=== PATIENT | male | born 1950 | race Caucasian/White ===

== ENCOUNTER 2019-07-22 08:56 | Emergency (ER) | payer MEDICARE, OTHER ==
[2019-07-22] MEDS ORDERED: Aspirin 81 MG Tab.Chew PO ONE (09:17)
[2019-07-22] MEDS ORDERED: Nitroglycerin 0.4 MG Tab.SL SL ONE ×3 (09:18→09:36)
--- NOTE | 2019-07-22 09:27 | EDM.PDOC ---
ED HPI GENERAL MEDICAL PROBLEM - General Chief Complaint: Chest Pain Stated Complaint: CHEST DENISSE NS Time Seen by Provider: 07/22/19 09:10 Source of Information: Reports: Patient - History of Present Illness INITIAL COMMENTS - FREE TEXT/NARRATIVE: Abraham Seaman" is a 68 y/o male who comes to the ER with chest pain. He reports being woke up about 0200 with the chest pain and it seemed to radiate into his right arm. He denies that the pain made him SOB, but he did get pain in his right arm. He thinks the pain [id number] with movement, but he was nauseated. Denies previous bouts of chest pain. He is a diabetic with oral control. Patient's father had an HI and at age 52. - Related Data Allergies Allergy/AdvReac Type Severity Reaction Status Date / Time No Known Allergies Allergy Verified 07/22/19 09:17 Home Meds: Home Meds metFORMIN [Glucophage XR] 1 tab PO BID 08/17/15 [History] Past Medical History Other Gastrointestinal History: history of rectal bleeding. inguinal hernia Other Musculoskeletal History: bilateral leg pain. 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) Review of Systems - Review of Systems Review Of Systems: See Below Constitutional: Reports: No Symptoms Eyes: Reports: No Symptoms Ears: Reports: No Symptoms Nose: Reports: No Symptoms Mouth/Throat: Reports: No Symptoms Respiratory: Reports: No Symptoms Cardiovascular: Reports: Chest Pain GI/Abdominal: Reports: Nausea Genitourinary: Reports: No Symptoms Musculoskeletal: Reports: Arm Pain (right) Skin: Reports: No Symptoms Neurological: Reports: No Symptoms Psychiatric: Reports: No Symptoms ED EXAM, GENERAL - Physical Exam Exam: See Below Exam Limited By: No Limitations General Appearance: Alert, WD/WN, No Apparent Distress Ears: Normal External Exam, Hearing Grossly Normal Nose: Normal Inspection Throat/Mouth: Normal Inspection, Normal Lips, Normal Teeth, Normal Gums, Normal Voice, No Airway Compromise Head: Atraumatic, Normocephalic Neck: Normal Inspection, Supple, Non-Tender Respiratory/Chest: No Respiratory Distress, Lungs Clear, Normal Breath Sounds, No Accessory Muscle Use, Chest Non-Tender Cardiovascular: Normal Peripheral Pulses, Regular Rate, Rhythm, No Edema, No Gallop, No JVD, No Murmur, No Rub GI/Abdominal: Normal Bowel Sounds, Soft, Non-Tender, No Organomegaly, No Mass (Male) Exam: Deferred Rectal (Males) Exam: Deferred Extremities: Normal Inspection Neurological: Alert, Oriented, CN II-XII Intact, Normal Cognition, Normal Gait, No Motor/Sensory Deficits Psychiatric: Normal Affect, Normal Mood Skin Exam: Warm, Dry, Intact, Normal Color, No Rash Lymphatic: No Adenopathy EKG INTERPRETATION EKG Date: 07/22/19 Time: 08:55 Rhythm: NSR Rate (Beats/Min): 68 EKG Interpretation Comments: SR with mild depression noted in Lead I, mild ST elevation noted in V2, V3 Course - Vital Signs Text/Narrative:: 0910 The patient was seen by the PROVIDER NETWORK ANALYST. Labs, CXR, & EKG were ordered. He was given Aspirin 324mg po x 1 and Nitro 0.4ml SL x 1. 0935 Patient was continuing to have chest pain 3/10 and Nitro was given twice and a third dose was now ordered. EKG was repeated. 0944 EKG essentially unchanged, some borderline elevation noted in V2 and V3. Morphine 2 mg IVP ordered for persistent CP. 1000 Notified by lab of elevated troponin at 0.074. 1005 [place] [facility] contacted and transfer requested. Will start Heparin gtt and Nitro gtt. Dr Melvin accepted the patient to [facility]. Patient pain better with Morphine. VSS. Patient remained stable and left with [facility] crew. Last Recorded V/S: Last Vital Signs Temp 36.3 C 07/22/19 09:00 Pulse 66 07/22/19 10:15 Resp 16 07/22/19 10:15 BP 133/87 07/22/19 10:15 Pulse Ox 97 07/22/19 10:15 - Orders/Labs/Meds Orders: Active Orders 24 hr Category Date Time Status EKG Documentation Completion [RC] STAT Care 10/21/19 09:15 Ordered EKG Documentation Completion [RC] STAT Care 07/22/19 09:45 Ordered Oxygen Therapy, ED [RC] ASDIRECTED Care 07/22/19 10:07 Ordered UA W/O MICROSCOPIC [URIN] Stat Lab 07/22/19 10:03 Ordered Heparin Sodium/0.45% NaCl [Heparin 25,000 Units in 1/2 Med 07/22/19 10:15 Ordered NS 500 ML] 25,000 units in 500 ml IV TITRATE Nitroglycerin 25 MG in D5W @ 10 MCG/MIN (250ml) Premix Med 07/22/19 10:15 Ordered Nitroglycerin/D5W [Nitroglycerin 25 MG/D5W 250 ML] 25 mg in 250 ml IV TITRATE Medication Orders Heparin Sodium/Sodium Chloride (Heparin 25,000 Units In 1/2 Ns 500 Ml) 25,000 units in 500 mls @ 1.2 mls/hr IV TITRATE LEONARD; Protocol Nitroglycerin/Dextrose (Nitroglycerin 25 Mg/D5w 250 Ml) 25 mg in 250 mls @ 6 mls/hr IV TITRATE LEONARD; Protocol Labs: Laboratory Tests 07/22/19 07/22/19 07/22/19 Range/Units 09:08 09:08 09:08 WBC 7.6 (4.0-10.0) x10^3/uL RBC 5.16 (4.5-6.0) x10^6/uL Hgb 15.5 (14.0-18.0) g/dL Hct 44.2 (40.0-52.0) % MCV 85.7 (78.0-93.0) fL MCH 30.0 (26.0-32.0) pg MCHC 35.1 (32.0-36.0) g/dL RDW Coeff of Jonathan 12.3 (10.0-15.0) % Plt Count 229 (130-400) x10^3/uL Neut % (Auto) 58.4 (50.0-80.0) % Lymph % (Auto) 28.1 (25.0-50.0) % [place]entry % (Auto) 10.8 (2.0-11.0) % Eos % (Auto) 2.4 (0.0-4.0) % Baso % (Auto) 0.3 (0.2-1.2) % PT 9.8 L (10.0-12.8) SEC INR 0.9 L (2.0-3.5) APTT 24.2 (24.0-36.0) SEC Sodium 137 (69-191) mmol/L Potassium 4.0 (1.5-9.9) mmol/L Chloride 100 (54-184) mmol/L Carbon Dioxide 25 (21-32) mmol/L Anion Gap 16.0 (10-20) mmol/L BUN 14 (7-18) mg/dL Creatinine 0.9 (0.70-1.30) mg/dL Est Cr Clr Drug Dosing 80.74 mL/min Estimated GFR (MDRD) > 60 Glucose 212 H (74-106) mg/dL Calcium 9.1 (8.5-10.1) mg/dL Corrected Calcium 9.26 (8.5-10.1) mg/dL Total Bilirubin 1.3 H (0.2-1.0) mg/dL AST 19 (15-37) U/L ALT 29 (16-63) U/L Alkaline Phosphatase 44 L (46-116) U/L Creatine Kinase 198 (39-308) U/L Troponin I 0.074 H* (<=0.056) ng/mL Total Protein 7.6 (6.4-8.2) g/dL Albumin 3.8 (3.4-5.0) g/dL Globulin 3.8 Albumin/Globulin Ratio 1.00 Meds: Medications Generic Name Dose Route Start Last Admin Trade Name Freq PRN Reason Stop Dose Admin Heparin Sodium/Sodium Chloride 25,000 units in 500 mls @ 1.2 mls/hr 07/22/19 10:15 Heparin 25,000 Units In 1/2 Ns 500 Ml IV TITRATE LEONARD Protocol 60 UNITS/HR Nitroglycerin/Dextrose 25 mg in 250 mls @ 6 mls/hr 07/22/19 10:15 Nitroglycerin 25 Mg/D5w 250 Ml IV TITRATE LEONARD Protocol 10 MCG/MIN Discontinued Medications Generic Name Dose Route Start Last Admin Trade Name Freq PRN Reason Stop Dose Admin Aspirin 324 mg 07/22/19 09:17 07/22/19 09:15 Aspirin PO 07/22/19 09:18 324 mg ONETIME ONE Administration Heparin Sodium (Porcine) 4,000 units 07/22/19 10:01 Heparin Sodium IVPUSH 07/22/19 10:02 .BOLUS ONE Morphine Sulfate 2 mg 07/22/19 09:45 07/22/19 09:52 Morphine IVPUSH 07/22/19 09:46 2 mg ONETIME ONE Administration Nitroglycerin 0.4 mg 07/22/19 09:18 07/22/19 09:17 Nitrostat SL 07/22/19 09:19 0.4 mg ONETIME ONE Administration Nitroglycerin 0.4 mg 07/22/19 09:27 07/22/19 09:27 Nitrostat SL 07/22/19 09:28 0.4 mg ONETIME ONE Administration Nitroglycerin 0.4 mg 07/22/19 09:36 07/22/19 09:36 Nitrostat SL 07/22/19 09:37 0.4 mg ONETIME ONE Administration - Radiology Interpretation Free Text/Narrative:: CXR=neg Departure - Departure Time of Disposition: 10:16 Disposition: DC/Tfer to [facility] 02 Condition: Good Clinical Impression: Acute coronary syndrome, Type 2 diabetes mellitus - Discharge Information *PRESCRIPTION DRUG MONITORING PROGRAM REVIEWED*: Not Applicable *COPY OF PRESCRIPTION DRUG MONITORING REPORT IN PATIENT DEUCE: Not Applicable Forms: ED Department Discharge, Interfacility Transfer EMTALA Additional Instructions: -Transfer to [facility] to Dr Melvin via [facility] ground crew for further care. - My Orders Last 24 Hours: My Active Orders 07/22/19 09:15 EKG Documentation Completion [RC] STAT 07/22/19 09:45 EKG Documentation Completion [RC] STAT 07/22/19 10:03 UA W/O MICROSCOPIC [URIN] Stat 07/22/19 10:07 Oxygen Therapy, ED [RC] ASDIRECTED 07/22/19 10:15 Heparin Sodium/0.45% NaCl [Heparin 25,000 Units in 1/2 NS 500 ML] 25,000 units in 500 ml IV TITRATE Nitroglycerin 25 MG in D5W @ 10 MCG/MIN (250ml) Premix Nitroglycerin/D5W [ Nitroglycerin 25 MG/D5W 250 ML] 25 mg in 250 ml IV TITRATE - Assessment/Plan Last 24 Hours: My Active Orders 07/22/19 09:15 EKG Documentation Completion [RC] STAT 07/22/19 09:45 EKG Documentation Completion [RC] STAT 07/22/19 10:03 UA W/O MICROSCOPIC [URIN] Stat 07/22/19 10:07 Oxygen Therapy, ED [RC] ASDIRECTED 07/22/19 10:15 Heparin Sodium/0.45% NaCl [Heparin 25,000 Units in 1/2 NS 500 ML] 25,000 units in 500 ml IV TITRATE Nitroglycerin 25 MG in D5W @ 10 MCG/MIN (250ml) Premix Nitroglycerin/D5W [ Nitroglycerin 25 MG/D5W 250 ML] 25 mg in 250 ml IV TITRATE
--- NOTE | 2019-07-22 09:39 | CR ---
[id number] RAD/RAD Chest PA or AP 1V EXAM: RAD Chest PA or AP 1V INDICATION: CHEST PAIN. COMPARISON: None. DISCUSSION: Cardiomediastinal silhouette is normal in size and contour. No infiltrate, effusion, pneumothorax, or edema. IMPRESSION: No acute cardiopulmonary abnormality. Mo Clark DO 07/22/19 0938 Thank you for allowing us to participate in the care of your patient.
[2019-07-22] MEDS ORDERED: Morphine 2 MG/ML Syringe IVPUSH ONE (09:45)
[2019-07-22 09:55] LABS: CHLORIDE,CL 100 mmol/L (54-184); SODIUM,NA 137 mmol/L (69-191)
[2019-07-22] MEDS ORDERED: Heparin Sodium 5,000 Units/ML Vial IVPUSH ONE (10:01)
[2019-07-22] MEDS ORDERED: Nitroglycerin/D5W 25 MG/250 ML BOTTLE IV SCH (10:15)
[2019-07-22] MEDS ORDERED: Heparin Sodium/0.45% NaCl 25,000 UNITS/500 ML BAG IV SCH (10:15)
[2019-07-22] MEDS ORDERED: Sodium Chloride 0.9% 1,000 ML IV SCH (10:30)
[2019-07-22 10:49] VITALS: BP 90/37; PULSE 58
== END 2019-07-22 11:02 | disposition short-term general hospital (02) ==
LOC: VM.ED 08:56
DX: I24.9 Acute ischemic heart disease, unspecified (principal); E11.9 Type 2 diabetes mellitus without complications; Z79.84 Long term (current) use of oral hypoglycemic drugs
CPT/HCPCS: 71045; 80053; 82550; 84484; 85025; 85610; 85730; 93005; 93010; 96365; 96368; 96375; 99284-GF; 99285-25; A9270-GY; J1644; J2270; J3490; J7030

== ENCOUNTER 2019-11-18 13:30 | Emergency (ER) | payer MEDICARE, OTHER ==
[2019-11-18] MEDS: HYDROmorphone 1 MG/ML Syringe IVPUSH ONE (13:46)
--- NOTE | 2019-11-18 14:36 | CR ---
[id number] RAD/RAD Lumbar Spine 2-3V EXAM: AP AND LATERAL LUMBAR SPINE. INDICATION: Back pain COMPARISON: Correlation is made with the exam of August 07, 2017 FINDINGS: Multilevel moderate degenerative changes are seen There is no fracture or subluxation There is bony foraminal narrowing and spinal stenosis at multiple levels IMPRESSION: MULTILEVEL MODERATE DEGENERATIVE CHANGES Michael Dubois MD 11/18/19 3557 Thank you for allowing us to participate in the care of your patient.
[2019-11-18 15:36] VITALS: BP 145/80; PULSE 70
--- NOTE | 2019-11-18 15:51 | EDM.PDOC ---
ED HPI GENERAL MEDICAL PROBLEM - General Chief Complaint: Back Pain or Injury Time Seen by Provider: 11/18/19 13:30 Source of Information: Reports: Patient History Limitations: Reports: No Limitations - History of Present Illness INITIAL COMMENTS - FREE TEXT/NARRATIVE: Pt. presents to ER with exacerbation of low back pain. Pt. states that he sneezed a few days ago and has been experiencing discomfort. Denies any numbness /tingling in legs. No incontinence or saddle anesthesia. Pt. was recently started on cyclobenzaprine 10mg three times daily for spasm. He states that he has had an MRI and "is supposed to have back surgery". He states that he has not had many flareups of discomfort until he sneezed. Onset: Today Onset Date: 11/18/19 Location: Reports: Back Quality: Reports: Ache, Throbbing Lower Back Pain Score (Numeric/FACES): 9 - Related Data Allergies Allergy/AdvReac Type Severity Reaction Status Date / Time No Known Allergies Allergy Verified 11/18/19 15:29 Home Meds: Home Meds metFORMIN [Glucophage XR] 500 mg PO QAM 08/17/15 [History] Apixaban [Eliquis] 5 mg PO BID 08/12/19 [History] Aspirin [Halfprin] 81 mg PO DAILY 08/12/19 [History] Clopidogrel [Plavix] 75 mg PO DAILY 08/12/19 [History] Lisinopril [Zestril] 2.5 mg PO DAILY 08/12/19 [History] Metoprolol Succinate [Toprol Xl] 25 mg PO DAILY 08/12/19 [History] Nitroglycerin [Nitrostat] 0.4 mg SL ASDIRECTED PRN 08/12/19 [History] atorvaSTATin [Lipitor] 40 mg PO BEDTIME 08/12/19 [History] metFORMIN [Glucophage] 1,000 mg PO BEDTIME 08/12/19 [History] Past Medical History Cardiovascular History: Reports: PR, Stents Other Gastrointestinal History: history of rectal bleeding. inguinal hernia Other Musculoskeletal History: bilateral leg pain. prepatellar bursitis of right knee Other Psychiatric History: alcohol abuse Endocrine/Metabolic History: Reports: Diabetes, Type II Other Immunologic History: MRSA - Past Surgical History GI Surgical History: Reports: Hernia, Inguinal Social & Family History - Family History Cardiac: Reports: CAD Neurological: Reports: CVA Endocrine/Metabolic: Reports: Diabetes, type II - Tobacco Use Smoking Status *Q: Never Smoker - Caffeine Use Caffeine Use: Reports: Coffee (3-4 cups/day) - Recreational Drug Use Recreational Drug Use: No - Living Situation & Occupation Living situation: Reports: , with Spouse 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) ED ROS GENERAL - Review of Systems Review Of Systems: See Below Constitutional: Reports: No Symptoms HEENT: Reports: No Symptoms Respiratory: Reports: No Symptoms Cardiovascular: Reports: No Symptoms Endocrine: Reports: No Symptoms GI/Abdominal: Reports: No Symptoms : Reports: No Symptoms Musculoskeletal: Reports: Back Pain, Muscle Stiffness Skin: Reports: No Symptoms Neurological: Reports: No Symptoms Psychiatric: Reports: No Symptoms Hematologic/Lymphatic: Reports: No Symptoms Immunologic: Reports: No Symptoms ED EXAM, GENERAL - Physical Exam Exam: See Below Exam Limited By: No Limitations General Appearance: Alert, WD/WN, No Apparent Distress Back Exam: Muscle Spasm, Vertebral Tenderness Extremities: Normal Inspection, Normal Range of Motion, Non-Tender, No Pedal Edema, Normal Capillary Refill Neurological: Alert, Oriented, CN II-XII Intact, Normal Cognition, Normal Gait, Normal Reflexes, No Motor/Sensory Deficits Skin Exam: Warm, Dry, Intact, Normal Color, No Rash Course - Vital Signs Last Recorded V/S: Last Vital Signs Temp 36.8 C 11/18/19 13:30 Pulse 70 11/18/19 13:30 Resp 16 11/18/19 13:30 BP 145/80 H 11/18/19 13:30 Pulse Ox 95 11/18/19 13:30 - Orders/Labs/Meds Meds: Medications Discontinued Medications Generic Name Dose Route Start Last Admin Trade Name Abiola PRN Reason Stop Dose Admin Hydromorphone HCl 1 mg 11/18/19 13:40 11/18/19 13:46 Dilaudid IVPUSH 11/18/19 13:41 1 mg ONETIME ONE Administration Departure - Departure Time of Disposition: 14:00 Disposition: DC/Tfer to Acute Hospital 02 Condition: Good Clinical Impression: Low back pain - Discharge Information Instructions: Acetaminophen; Hydrocodone tablets or capsules, Acute Back Pain, Adult Referrals: Larry Cisneros MD [Primary Care Provider] - Additional Instructions: Continue with cyclobenzaprine 1 tablet 3 times a day [place] 10/325mg 1 every 6 hours as needed for pain Physical therapy will contact you regarding an appointment. Try to be up walking around as much as possible. Lying around or sitting in a chair will make it worse. Make sure you are walking around your house at least every hour. Recheck in clinic in 7-10 days. Sepsis Event Note - Evaluation Sepsis Screening Result: No Definite Risk - Focused Exam Vital Signs: Vital Signs Temp Pulse Resp BP Pulse Ox 11/18/19 13:30 36.8 C 70 16 145/80 H 95 Date Exam was Performed: 11/18/19 Time Exam was Performed: 15:44 - Assessment/Plan Plan: Continue with cyclobenzaprine 1 tablet 3 times a day [place] 10/325mg 1 every 6 hours as needed for pain Physical therapy will contact you regarding an appointment. Try to be up walking around as much as possible. Lying around or sitting in a chair will make it worse. Make sure you are walking around your house at least every hour. Recheck in clinic in 7-10 days.
== END 2019-11-18 14:55 | disposition short-term general hospital (02) ==
LOC: VM.ED 13:30
DX: M54.5 Low back pain (principal); I25.2 Old myocardial infarction; E11.9 Type 2 diabetes mellitus without complications; Z79.899 Other long term (current) drug therapy; Z79.01 Long term (current) use of anticoagulants; Z79.82 Long term (current) use of aspirin; Z79.02 Long term (current) use of antithrombotics/antiplatelets; Z79.84 Long term (current) use of oral hypoglycemic drugs; Z95.5 Presence of coronary angioplasty implant and graft
CPT/HCPCS: 72100; 96374; 99283-GF; 99284-25; J1170

== ENCOUNTER 2023-10-06 05:50 | Emergency (ER) | payer MEDICARE, OTHER ==
[2023-10-06] MEDS ORDERED: Ondansetron 4 MG Tab.DIS PO ONE (06:01)
[2023-10-06 06:03] VITALS: BP 130/69; PULSE 104
== END 2023-10-06 06:26 | disposition home or self-care (01) ==
LOC: VM.ED 05:50
DX: K52.9 Noninfective gastroenteritis and colitis, unspecified (principal); E11.9 Type 2 diabetes mellitus without complications; I25.2 Old myocardial infarction; Z79.84 Long term (current) use of oral hypoglycemic drugs; Z79.82 Long term (current) use of aspirin; Z79.01 Long term (current) use of anticoagulants; Z79.899 Other long term (current) drug therapy
CPT/HCPCS: 99283; A9270

== ENCOUNTER 2024-04-08 11:35 | Emergency (ER) | payer MEDICARE, OTHER ==
[2024-04-08 12:14] LABS: BASOPHILS PERCENT AUTO 0.5 % (0.2-1.2); EOSINOPHILS ABSOLUTE AUTO 0.1 x10^3/uL (0.0-0.5); EOSINOPHILS PERCENT AUTO 2.3 % (0.0-4.0); HEMATOCRIT 43.1 % (40.0-52.0); HEMOGLOBIN 14.7 g/dL (14.0-18.0); IMMATURE GRAN ABSOLUTE AUTO 0.01 x10^3/uL (0.00-0.07); LYMPHOCYTES ABSOLUTE AUTO 1.5 x10^3/uL (1.0-4.8); LYMPHOCYTES PERCENT AUTO 23.5 % (25.0-50.0); MEAN CORPUSCULAR HEMOGLOBIN 30.4 pg (26.0-32.0); MEAN CORPUSCULAR HGB CONC 34.1 g/dL (32.0-36.0); MEAN CORPUSCULAR VOLUME 89.2 fL (78.0-93.0); MONOCYTES ABSOLUTE AUTO 0.5 x10^3/uL (0.0-0.8); MONOCYTES PERCENT AUTO 8.6 % (2.0-11.0); NEUTROPHILS PERCENT AUTO 64.9 % (50.0-80.0); PLATELET COUNT,PLT 216 x10^3/uL (130-400); RED BLOOD CELL COUNT 4.83 x10^6/uL (4.5-6.0); WHITE BLOOD CELL COUNT,WBC 6.2 x10^3/uL (4.0-10.0)
[2024-04-08 12:42] LABS: A/G RATIO 1.14; BILIRUBIN TOTAL 1.5 mg/dL (0.2-1.0); CALCIUM 9.9 mg/dL (8.5-10.1); EST CRCL DRUG DOSING (CG) 65.55 mL/min; MAGNESIUM 1.9 mg/dL (1.8-2.4); POTASSIUM,K 4.3 mmol/L (3.5-5.1); PROTEIN TOTAL,TP 7.5 g/dL (6.4-8.2)
[2024-04-08 12:44] LABS: ANION GAP 14.3 mmol/L (5-15)
[2024-04-08 14:01] VITALS: BP 116/72; PULSE 82
== END 2024-04-08 13:05 | disposition home or self-care (01) ==
LOC: VM.ED 11:35
DX: R07.89 Other chest pain (principal); M94.0 Chondrocostal junction syndrome [Tietze]; I25.2 Old myocardial infarction; E11.9 Type 2 diabetes mellitus without complications; Z79.84 Long term (current) use of oral hypoglycemic drugs; Z79.82 Long term (current) use of aspirin; Z79.899 Other long term (current) drug therapy
CPT/HCPCS: 36415; 71045; 80053; 83735; 84484; 85025; 93010; 99284; 99285

== ENCOUNTER 2025-01-12 10:37 | Emergency (ER) | payer MEDICARE, OTHER ==
[2025-01-12 10:42] VITALS: BP 128/56; PULSE 70
[2025-01-12 10:55] LABS: BASOPHILS PERCENT AUTO 0.5 % (0.2-1.2); EOSINOPHILS ABSOLUTE AUTO 0.1 x10^3/uL (0.0-0.5); EOSINOPHILS PERCENT AUTO 2.3 % (0.0-4.0); HEMATOCRIT 44.6 % (40.0-52.0); HEMOGLOBIN 15.2 g/dL (14.0-18.0); LYMPHOCYTES ABSOLUTE AUTO 1.9 x10^3/uL (1.0-4.8); LYMPHOCYTES PERCENT AUTO 31.1 % (25.0-50.0); MEAN CORPUSCULAR HEMOGLOBIN 29.9 pg (26.0-32.0); MEAN CORPUSCULAR HGB CONC 34.1 g/dL (32.0-36.0); MEAN CORPUSCULAR VOLUME 87.8 fL (78.0-93.0); MONOCYTES ABSOLUTE AUTO 0.7 x10^3/uL (0.0-0.8); MONOCYTES PERCENT AUTO 11.3 % (2.0-11.0); NEUTROPHILS ABSOLUTE AUTO 3.4 x10^3/uL (1.8-7.7); NEUTROPHILS PERCENT AUTO 54.8 % (50.0-80.0); PLATELET COUNT,PLT 231 x10^3/uL (130-400); RED BLOOD CELL COUNT 5.08 x10^6/uL (4.5-6.0); WHITE BLOOD CELL COUNT,WBC 6.2 x10^3/uL (4.0-10.0)
[2025-01-12 11:14] LABS: A/G RATIO 1.24; ALANINE AMINOTRANSFERASE,ALT 27 U/L (16-63); ALBUMIN 4.2 g/dL (3.4-5.0); ALKALINE PHOSPHATASE 46 U/L (46-116); ASPARTATE AMNIOTRANSFERASE,AST 25 U/L (15-37); BILIRUBIN TOTAL 2.2 mg/dL (0.2-1.0); BLOOD UREA NITROGEN,BUN 21 mg/dL (7-18); CALCIUM 9.4 mg/dL (8.5-10.1); CARBON DIOXIDE,CO2 28 mmol/L (21-32); CHLORIDE,CL 98 mmol/L (98-107); GLUCOSE RANDOM 140 mg/dL (70-99); POTASSIUM,K 4.3 mmol/L (3.5-5.1); PROTEIN TOTAL,TP 7.6 g/dL (6.4-8.2); SODIUM,NA 135 mmol/L (136-145)
[2025-01-12 11:16] LABS: ANION GAP 13.3 mmol/L (5-15); ESTIMATED GFR 80 mL/min (>=60)
[2025-01-12] MEDS: Lactated Ringers 1,000 ML IV ONE (11:36)
== END 2025-01-12 12:25 | disposition home or self-care (01) ==
LOC: VM.ED 10:37
DX: E86.0 Dehydration (principal); E11.9 Type 2 diabetes mellitus without complications; Z79.899 Other long term (current) drug therapy; Z79.84 Long term (current) use of oral hypoglycemic drugs; Z79.82 Long term (current) use of aspirin
CPT/HCPCS: 36415; 80053; 83735; 84484; 85025; 93005; 96360; 99284; J7120; 93010